=== PATIENT | female | born 1945 | race Caucasian/White ===

== ENCOUNTER 2022-04-05 11:42 | Outpatient (CLI) | payer OTHER, SELFPAY ==
--- NOTE | 2022-04-05 11:30 | RT.EKG_ITS ---
APPROVED REPORT Exam: Resting ECG Reason for Exam: chest discomfort Patient Location: O HR:78 bpm ECG Measurements Heart Rate 78 AXIS AL 166 P 47 QRSd 149 QRS 5 QT 416 T 68 QTc 474 Conclusion Sinus rhythm...normal P axis, V-rate 50- 99 Probable left atrial enlargement...P >50mS, <-0.10mV V1 Left bundle branch block...QRSd>120, broad/notched R
== END 2022-04-05 11:43 | disposition home or self-care (01) ==
LOC: DI.CM 11:42
PROVIDERS: Visit Provider Nurse Practitioner Family
DX: R07.89 Other chest pain (principal); R94.31 Abnormal electrocardiogram [ECG] [EKG]; I44.7 Left bundle-branch block, unspecified
CPT/HCPCS: 93010

== ENCOUNTER 2022-04-05 12:14 | Emergency (ER) | payer OTHER, SELFPAY ==
[2022-04-05] VITALS (22 sets, daily range): BP systolic 121–170; BP diastolic 73–97; PULSE 71–86; RESP 10–26; TEMP 36.1–36.5; O2SAT 95–100
--- NOTE | 2022-04-05 12:15 | RT.EKG_ITS ---
APPROVED REPORT Exam: Resting ECG Reason for Exam: chest pain Patient Location: E HR:77 bpm ECG Measurements Heart Rate 77 AXIS TN 175 P 40 QRSd 147 QRS -4 QT 410 T 80 QTc 465 Conclusion Sinus rhythm...normal P axis, V-rate 60- 99 Left bundle branch block...QRSd>120, broad/notched R inapproriate concordance inf/lat leads Abnormal Electrocardiogram
--- NOTE | 2022-04-05 12:29 | NUR.NOTE ---
Addendum entered by Heidy Dye 04/05/22 14:59: [facility] [phone] Addendum entered by Heidy Dye 04/05/22 13:01: Maritza Minor; [facility]; Dr Gonzalez retired; [phone] phone Original Note: Nursing Note: [facility], Dr. Alfredo retired; [phone] phone
--- NOTE | 2022-04-05 13:15 | DI.RAD_ITS ---
Exam(s) XR CHEST 2V PA LATERAL EXAM: XR CHEST 2V PA LATERAL CLINICAL HISTORY: wheeze. TECHNIQUE: 2D digital imaging was performed. COMPARISON: No exams were available for comparison FINDINGS: 2 views: Heart size is normal. The mediastinum is not widened. Lungs are clear. No infiltrates nor pleural effusions. IMPRESSION: No acute pulmonary findings. DATA REPOSITORY: RADIATION DOSE DELIVERED:
[2022-04-05 13:54] LABS: Abs Immature Grans 0.02 10^3/uL (0.0-0.06); Absolute Basophil Count 0.05 10^3/uL (0.0-0.2); Absolute Monocyte Count 0.41 10^3/uL (0.1-0.8); Absolute Neutrophil Count 2.73 10^3/uL (1.2-6.7); Basophils % 0.9; Eosinophils % 13.2; HCT 46.4 % (36.0-46.0); HGB 15.4 g/dL (11.2-15.7); Immature Grans % 0.4; Lymphocytes % 26.4; MCH 32.1 pg (27.0-33.0); MCHC 33.2 % (32.0-36.0); MCV 97 fL (80-95); MPV 9.8 fL (8.0-11.0); Monocytes % 7.7; Neutrophils % 51.4; Platelet Count 248 10^3/uL (130-400); RDW 12.5 % (11.7-14.6); RDW-SD 44.9 fL; WBC 5.31 10^3/uL (4.4-10.8)
[2022-04-05 14:16] LABS: ALT 24 U/L (14-59); AST 22 U/L (15-37); Albumin 3.8 g/dL (3.4-5.0); Alkaline Phosphatase 64 U/L (46-116); Anion Gap 5.1 mmol/L (3-11); BUN 18 mg/dL (7-18); Bilirubin, Total 0.4 mg/dL (0.2-1.0); CO2 32.9 mmol/L (21.0-32.0); Calcium 9.2 mg/dL (8.5-10.1); Chloride 102 mmol/L (98-107); Estimated GFR 58.39 (mL/min/1.73m2); Glucose 109 mg/dL (74-106); NT-proBNP 196 pg/mL (<300); Potassium 4.1 mmol/L (3.5-5.1); Sodium 140 mmol/L (136-145); Total Protein 7.5 g/dL (6.4-8.2); Troponin I < 50 ng/L (<or=60)
--- NOTE | 2022-04-05 14:55 | ED.GENADUL_ITS ---
Discharge Plan Disposition Patient Disposition: HOME Condition: Stable Discharge Details Clinical Impression: Acute asthma exacerbation, Chest discomfort Primary Care Provider: Unknown,Unknown ED Provider: Ike Fregoso Home Meds and New Rx's Prescriptions: New levalbuterol tartrate 45 mcg/actuation HFA aerosol inhaler 2 inh inhalation .q6 prn Qty: 15 0RF Rx Instructions: generic ok Continued levothyroxine 75 mcg capsule 75 mcg PO DAILY simvastatin 20 mg tablet 20 mg PO DAILY raloxifene 60 mg tablet 60 mg PO DAILY loteprednol etabonate [Lotemax] 0.5 % drops,suspension 1 drp ophthalmic (eye) BID carvedilol 3.125 mg tablet 3.125 mg PO BID Rx Instructions: must administer with a meal/food lisinopril 2.5 mg tablet 2.5 mg PO DAILY famotidine 40 mg tablet 40 mg PO DAILY cevimeline 30 mg capsule 1 cap PO TID Discharge Instructions Instructions: Asthma (ED) Additional Instructions: Please use [id number] antihistamine like Claritin or Amanda for seasonal allergy symptoms. Dose according to label. Please use levalbuterol inhaler with spacer as prescribed for wheeze. Please follow-up with your primary care physician and stenographer secretary. Return to the ER immediately for any worsening or new concerning symptoms. Discharge Data Discharge Date/Time-TO BE ENTERED AT DEPARTURE: 04/05/22 17:12 Medical Decision Making -- 76-year-old female with history of cardiomyopathy and asthma, here with shortness of breath and associated wheezing and chest discomfort that started last night, still persisting although improved this morning with no chest pain at this time. Considered ACS. EKG was reviewed and interpreted by me: Please see report, nondiagnostic. Left bundle branch block is present. No old EKG available for comparison despite multiple attempts to identify EKG in outside hospital records. Initial troponin was negative. Patient was observed on cardiac cath lab manager in the emergency department and remained stable with no arrhythmia. Delta troponin at 3 hours negative. Considered pneumonia. Chest x-ray was reviewed and interpreted by radiology:Hea rt size is normal.? The mediastinum is not widened. Lungs are clear.? No infiltrates nor pleural effusions. I suspect patient is experiencing acute asthma exacerbation. Plan to treat with levalbuterol albuterol inhaler and inhaler spacer device. Plan will be for discharge with outpatient follow-up. Patient was encouraged to follow-up with her stenographer secretary as well as her primary care physician. All results were discussed with the patient. Disposition decision was made weighing the risks and benefits of hospitalization versus outpatient treatment, the risk for further decompensation, and the patient's wishes. The patient was stable and requested discharge. Prior to discharge, my usual and customary return precautions were reviewed with the patient - this included follow-up instructions and reason to return to the emergency department if condition worsens, does not improve as expected, or other new concerns arise. Lab Data Lab results reviewed: Yes I reviewed the patient's lab results. Labs: Laboratory Tests Range/Units 04/05/22 04/05/22 04/05/22 13:40 13:40 15:43 WBC (4.4-10.8) 10^3/uL 5.31 RBC (3.93-5.22) 10^6/uL 4.80 Hgb (11.2-15.7) g/dL 15.4 Hct (36.0-46.0) % 46.4 H MCV (80-95) fL 97 H MCH (27.0-33.0) pg 32.1 MCHC (32.0-36.0) % 33.2 RDW (11.7-14.6) % 12.5 Plt Count (130-400) 10^3/uL 248 MPV (8.0-11.0) fL 9.8 Immature Gran % 0.4 Neutrophils % 51.4 Lymphocytes % 26.4 Monocytes % 7.7 Eosinophils % 13.2 Basophils % 0.9 Nucleated RBC % (0.0-0.3) % 0.0 Absolute Neutrophils (1.2-6.7) 10^3/uL 2.73 Absolute Lymphocytes (1.2-3.4) 10^3/uL 1.40 Absolute Monocytes (0.1-0.8) 10^3/uL 0.41 Absolute Eosinophils (0.0-0.7) 10^3/uL 0.70 Absolute Basophils (0.0-0.2) 10^3/uL 0.05 Sodium (136-145) mmol/L 140 Potassium (3.5-5.1) mmol/L 4.1 Chloride (98-107) mmol/L 102 Carbon Dioxide (21.0-32.0) mmol/L 32.9 H Anion Gap (3-11) mmol/L 5.1 BUN (7-18) mg/dL 18 Creatinine (0.55-1.02) mg/dL 1.0 Est GFR (CKD-EPI 2020) (mL/min/1.73m2) 58.39 Glucose (74-106) mg/dL 109 H Calcium (8.5-10.1) mg/dL 9.2 Magnesium (1.8-2.4) mg/dL 2.0 Total Bilirubin (0.2-1.0) mg/dL 0.4 AST (15-37) U/L 22 ALT (14-59) U/L 24 Alkaline Phosphatase (46-116) U/L 64 Troponin I (<or=60) ng/L < 50 < 50 NT-Pro-B Natriuret Pep (<300) pg/mL 196 Total Protein (6.4-8.2) g/dL 7.5 Albumin (3.4-5.0) g/dL 3.8 HPI General Date/Time Provider Initiated Documentation: 04/05/22 13:17 . Limitations to Documentation: no limitations . Information obtained by: patient . HPI Narrative: 76-year-old female with history of asthma and dilated cardiomyopathy presents with chief complaint of shortness of breath. Patient notes symptoms began last night. She experienced wheezing and labored breathing and pressure in her chest with breathing. Symptoms have persisted today although improved. No chest pressure. She sought care at [facility] who advised her to come the emergency department given past medical history for evaluation. Patient denies associated nausea, radiation of chest discomfort, or other concerning symptoms. She has no associated leg swelling or calf pain. Related Data Home Medications Medication Instructions Recorded Confirmed carvedilol 3.125 mg tablet 3.125 mg PO BID 04/05/22 04/05/22 cevimeline 30 mg capsule 1 cap PO TID 04/05/22 04/05/22 famotidine 40 mg tablet 40 mg PO DAILY 04/05/22 04/05/22 levalbuterol tartrate 45 2 inh inhalation .q6 prn wheeze 04/05/22 mcg/actuation aerosol inhaler #15 grams levothyroxine 75 mcg capsule 75 mcg PO DAILY 04/05/22 04/05/22 lisinopril 2.5 mg tablet 2.5 mg PO DAILY 04/05/22 04/05/22 loteprednol etabonate 0.5 % eye 1 drp ophthalmic (eye) BID 04/05/22 04/05/22 drops,suspension (Lotemax) raloxifene 60 mg tablet 60 mg PO DAILY 04/05/22 04/05/22 simvastatin 20 mg tablet 20 mg PO DAILY 04/05/22 04/05/22 Previous Rx's Medication Instructions Recorded levalbuterol tartrate 45 2 inh inhalation .q6 prn wheeze 04/05/22 mcg/actuation aerosol inhaler #15 grams Allergies Allergy/AdvReac Type Severity Reaction Status Date / Time codeine Allergy Verified 04/05/22 12:20 General Stated Complaint: Chest Pain JOE: 3 Review of Systems All systems reviewed & are unremarkable except as noted in HPI and below Constitutional Constitutional: Denies fever(s) Cardiovascular Cardiovascular: Reports as per HPI Respiratory Respiratory: Reports as per HPI PFSH All Active Problems (Updated 04/05/22 @ 16:36 by Ike Fregoso MD) Acute asthma exacerbation (Acute) Chest discomfort (Acute) Social History Smoking/Tobacco Use Status: Never Smoking risk assessment performed?: Yes Alcohol Intake: current Alcohol Intake frequency: a few times a week Substance use type: does not use Do you feel safe at home: Yes Do you feel safe in your relationship?: Yes Exam Const General: cooperative and no acute distress HENMT Mouth: moist mucous membranes Eyes Conjunctivae: normal conjunctivae Sclera: normal sclerae Neck Neck: trachea midline and supple Resp Auscultation: clear to auscultation bilaterally, no rales, no rhonchi and no wheezes Cardio Rate: regular rate and not tachycardic Rhythm: regular rhythm GI Palpation: soft, not firm, no guarding, no masses, not rigid and nontender Skin General skin exam: no rashes or lesions noted Neuro General: patient alert, patient awake and tone normal Extrem General: no calf tenderness and no edema Psych Appearance: grossly normal Mental Status: mental status grossly normal Speech and Movement: speech and movement normal Course Vital Signs Vital signs: Vital Signs Temperature 36.1 C L 04/05/22 12:28 Pulse 83 04/05/22 12:28 Respiratory Rate 16 04/05/22 12:28 Blood Pressure 170/93 H 04/05/22 12:28 Pulse Oximetry 98 04/05/22 12:28 Temperature 36.1 C L 04/05/22 12:28 Pulse 74 04/05/22 14:42 Respiratory Rate 16 04/05/22 14:42 Respiratory Effort 04/05/22 12:21 Respiratory Depth Normal 04/05/22 12:21 Respiratory Pattern Normal 04/05/22 12:21 Blood Pressure 142/77 H 04/05/22 14:42 Pulse Oximetry 99 04/05/22 14:42 Lab/Test Results Lab/Test Results: Laboratory Tests Range/Units 04/05/22 04/05/22 13:40 13:40 WBC (4.4-10.8) 10^3/uL 5.31 RBC (3.93-5.22) 10^6/uL 4.80 Hgb (11.2-15.7) g/dL 15.4 Hct (36.0-46.0) % 46.4 H MCV (80-95) fL 97 H MCH (27.0-33.0) pg 32.1 MCHC (32.0-36.0) % 33.2 RDW (11.7-14.6) % 12.5 Plt Count (130-400) 10^3/uL 248 MPV (8.0-11.0) fL 9.8 Immature Gran % 0.4 Neutrophils % 51.4 Lymphocytes % 26.4 Monocytes % 7.7 Eosinophils % 13.2 Basophils % 0.9 Nucleated RBC % (0.0-0.3) % 0.0 Absolute Neutrophils (1.2-6.7) 10^3/uL 2.73 Absolute Lymphocytes (1.2-3.4) 10^3/uL 1.40 Absolute Monocytes (0.1-0.8) 10^3/uL 0.41 Absolute Eosinophils (0.0-0.7) 10^3/uL 0.70 Absolute Basophils (0.0-0.2) 10^3/uL 0.05 Sodium (136-145) mmol/L 140 Potassium (3.5-5.1) mmol/L 4.1 Chloride (98-107) mmol/L 102 Carbon Dioxide (21.0-32.0) mmol/L 32.9 H Anion Gap (3-11) mmol/L 5.1 BUN (7-18) mg/dL 18 Creatinine (0.55-1.02) mg/dL 1.0 Est GFR (CKD-EPI 2020) (mL/min/1.73m2) 58.39 Glucose (74-106) mg/dL 109 H Calcium (8.5-10.1) mg/dL 9.2 Magnesium (1.8-2.4) mg/dL 2.0 Total Bilirubin (0.2-1.0) mg/dL 0.4 AST (15-37) U/L 22 ALT (14-59) U/L 24 Alkaline Phosphatase (46-116) U/L 64 Troponin I (<or=60) ng/L < 50 NT-Pro-B Natriuret Pep (<300) pg/mL 196 Total Protein (6.4-8.2) g/dL 7.5 Albumin (3.4-5.0) g/dL 3.8
[2022-04-05 16:15] LABS: Troponin I < 50 ng/L (<or=60)
[2022-04-05] MEDS: Inhaler, Assist Device 1 EACH MC (17:10)
== END 2022-04-05 17:12 | disposition home or self-care (01) ==
PROVIDERS: Emergency Provider Student in an Organized Health Care Education/Training Program
DX: J45.901 Unspecified asthma with (acute) exacerbation (principal); R07.89 Other chest pain; R06.2 Wheezing; R07.9 Chest pain, unspecified
CPT/HCPCS: 36415; 80053; 93005; 99284; 71046; 83735; 83880; 84484; 85025; 93010